=== PATIENT | male | born 1980 ===

== ENCOUNTER 2023-06-19 11:51 | Emergency (ER) | payer MEDICAID ==
[~2023-06-19] VITALS: Ht 177 cm; Wt 76.2 kg
[2023-06-19 12:37] VITALS: BP 132/87
[2023-06-19] MEDS ORDERED: ACHD5005 PO (13:08)
[2023-06-19] MEDS ORDERED: CLIN-144 PO (13:08)
--- NOTE | 2023-06-19 13:08 | ED EENT ---
History of Present Illness General Chief Complaint: Dental Problems/Pain Stated Complaint: TOOTH INFECTION Nursing Triage Note: PT AMBULATORY TO ER, C/O LOWER LEFT DENTAL PAIN X 4 DAYS, NO RELIEF WITH TYLENOL Source: patient Exam Limitations: no limitations History of Present Illness Date Seen by Provider: Jun 19, 2023 Time Seen by Provider: 13:03 Initial Comments Patient is a 43-year-old male who presents to the ED with left lower dental pain. Dental pain for the past 4 days. Pain with eating. History of previous dental pain in this area in the past. Patient is requesting antibiotics. Denies any facial swelling, redness, fever, chills, headache or dizziness. Denies taking thing for pain. Allergies and Home Medications Allergies Coded Allergies: No Known Drug Allergies (Unverified , 06/19/23) Patient Home Medication List Home Medication List Reviewed: Yes Clindamycin HCl (Clindamycin HCl) 300 Mg Capsule, 300 MG PO QID Prescribed by: KENDY ABREU on 06/19/23 1308 Hydrocodone/Acetaminophen (Hydrocodone-Acetamin 5-325 mg) 5 Mg-325 Mg Tablet, 1 TAB PO Q4H PRN for PAIN-MODERATE (5-7) Prescribed by: KENDY ABREU on 06/19/23 1309 Review of Systems Review of Systems Constitutional: No chills, No diaphoresis, No malaise, No weakness Eyes: Denies Blurred Vision, Denies Drainage, Denies Decreased Acuity Ears: Denies Dizziness, Denies Pain Nose: denies clots, denies congestion Mouth: denies loose teeth; pain Throat: denies pain, denies swelling Respiratory: No cough, No dyspnea on exertion Cardiovascular: No chest pain Gastrointestinal: No abdominal pain, No diarrhea, No nausea, No vomiting Musculoskeletal: No back pain, No joint pain Skin: No change in color, No change in hair/nails Neurological: Denies Anxiety, Denies Depressed All Other Systems Reviewed Negative Unless Noted: Yes Past [id number]-[id number] Hx Patient Social History Tobacco Use?: No Substance use?: No Alcohol Use?: No Pt feels they are or have been: No Physical Exam Vital Signs Vital Signs - First Documented 06/19/23 12:37 Temp 36.6 Pulse 68 Resp 16 B/P (MAP) 132/87 (102) Pulse Ox 99 O2 Delivery Room Air Height, Weight, BMI Height: '" Weight: lbs. oz. kg; 24.00 BMI Method: General Appearance: WD/WN Eyes: bilateral eye normal inspection, bilateral eye PERRL, bilateral eye abnormal EOM Ears: bilateral ear auricle normal, bilateral ear canal normal, bilateral ear TM normal Nose: normal inspection Mouth/Throat: normal mouth inspection, pharynx normal, other (Left lower molar dental tenderness. Decay noted. 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 Left lower dental tenderness. Differential diagnosis dental abscess, gingivitis. On exam decay noted. Gum swelling redness. No fluctuant mass. No facial swelling or redness. Tolerating secretions. Vital signs stable. Did offer dental block patient refused. Concern for dental infection. Will discharge with clindamycin few days worth of pain medication. Recommend following up with your dentist. States he will follow-up when he returns back to [place]. If any worsening symptoms such as facial swelling redness pain to return back to ED. Impression Primary Impression: Toothache Disposition: 01 HOME, SELF-CARE Condition: Stable Departure-Patient Inst. Decision time for Depature: 13:07 Referrals: [facility],LOCAL PHYSICIAN (PCP) Primary Care Physician Patient Instructions: Dental Pain Add. Discharge Instructions: Recommend following up with your dentist. Take antibiotics pain medication as prescribed All discharge instructions reviewed with patient and/or family. Voiced understanding. Scripts Hydrocodone/Acetaminophen (Hydrocodone-Acetamin 5-325 mg) 5 Mg-325 Mg Tablet 1 TAB PO Q4H PRN for PAIN-MODERATE (5-7), #8 TAB Prov: OKSANA PAUL 06/19/23 Clindamycin HCl (Clindamycin HCl) 300 Mg Capsule 300 MG PO QID for 7 Days, #28 CAP Prov: OKSANA PAUL 06/19/23 OKSANA PAUL Jun 19, 2023 13:08
== END 2023-06-19 13:14 | disposition home or self-care (01) ==
LOC: ER 11:57
DX: K08.89 Other specified disorders of teeth and supporting structures (principal); Z28.310 Unvaccinated for COVID-19
CPT/HCPCS: 99282